=== PATIENT | female | born 1960 | race Caucasian/White ===

== ENCOUNTER 2023-06-07 11:19 | Emergency (ER) | payer OTHER, SELFPAY ==
[2023-06-07 11:27] VITALS: BP 140/90
[2023-06-07 11:56] LABS: % Basophils 1.4 % (0-2); % Eosinophils 11.2 % (0-6); % Immature Granulocytes 0.3 % (0-0.5); % Lymphocytes 27.3 % (20.5-51.1); % Neutrophils 49.8 % (42.2-75.2); Absolute Basophils 0.1 10^3/uL (0-0.2); Absolute Eosinophils 0.8 10^3/uL (0-0.7); Absolute Lymphocytes 1.9 10^3/uL (1.2-3.4); Absolute Monocytes 0.7 10^3/uL (0.1-0.6); Absolute Neutrophils 3.5 10^3/uL (1.4-6.5); Hematocrit 43.6 % (37.0-47.0); Hemoglobin 14.1 g/dL (12.0-16.0); Mean Corp Hgb Conc. 32.3 g/dL (33.0-37.0); Mean Corpuscular Hgb 30.1 pg (27.0-31.0); Mean Platelet Volume 9.7 fL (7.4-10.4); Nucleated Red Blood Cells % 0 %; Platelet Count 265 10^3/uL (130-400); Red Blood Cell Count 4.69 10^6/uL (4.20-5.40)
[2023-06-07 12:05] LABS: ALT (SGPT) 33 U/L (0-35); AST (SGOT) 50 U/L (14-36); Albumin 4.3 g/dl (3.5-5.0); Alkaline Phosphatase 65 U/L (38-126); Blood Urea Nitrogen 10 mg/dl (7-17); Calcium 9.4 mg/dl (8.4-10.2); Carbon Dioxide 32 mmol/L (22-30); Chloride 100 mmol/L (98-107); Glucose 88 mg/dl (70-99); Potassium 4.5 mmol/L (3.5-5.1); Sodium 136 mmol/L (135-145); Total Bilirubin 0.5 mg/dl (0.2-1.3); Total Protein 7.1 g/dl (6.3-8.2); eGFR > 60.00
[2023-06-07 12:17] LABS: Troponin I < 0.012 ng/ml
[2023-06-07 12:31] LABS: COVID-19 Antigen Negative (Negative)
--- NOTE | 2023-06-07 13:31 | ED.GENMED ---
History of Present Illness
General
Chief Complaint: Breathing Problem
Time Seen by Provider: 06/07/23 12:38
Travel History
Have you had any contact with someone who has COVID-19?: No
Do you have any symptoms of coronavirus? Fever > 100 degrees, chills, cough, shortness of breath, sore throat, loss of taste or smell, muscle aches, or headache?: No
History of Present Illness
History of Present Illness:
62-year-old female with history of COPD presents to the emergency department for evaluation of shortness of breath particular with exertion. She feels as though her COPD is worsening. She has been using her nebulizers and her controlled
medications as prescribed and feels that her symptoms are worsening. She states she is quite hesitant about the prospect of receiving steroid medications due to the frequency with which she has taken them. She does not have a pending pulmonology
follow-up due to lack of available appointments. Denies any fever, chills, sweats, purulent sputum, chest pain, or leg swelling
Past History
Past History
ED Past Medical History: COPD, Psychiatric (anxiety) and Other (Hep C); Negative HTN, Hypercholesterolemia, IDDM or NIDDM
ED Past Surgical History: Negative Cardiac (Pacemaker)
Social History
Tobacco: Former smoker
Alcohol: Occasional (states she drank Rum today)
Drug: None
Personal: Other
Living: with roommate (her son's father)
Employment: Disabled
Family History
Family History: Other; Negative Early CAD or CAD
Review of Systems
Review of Systems
Allergies reviewed?: Yes
All Other Systems: ROS reviewed and negative except as documented in HPI and ROS
Phy Exam
Physical Exam
Physical Exam:
GEN: Well appearing, NAD, WDWN
HEENT: Oral mucosa moist, no scleral icterus
Cardiac: Regular rate, and rhythm, no murmur
Lung: Normal respiratory effort, no conversational dyspnea. Scant expiratory wheezes heard throughout all lung ford, diminished bibasilar sounds
MSK: No gross deformity or injuries
Skin: Good color, no pallor or jaundice, no rashes
Neuro: AO x3, moves all extremities freely
Psych: Calm, cooperative
Scores
Heart Failure Risk
Heart Failure Risk Score: Not Applicable
Course
Orders/Labs/Results
Orders:
Orders
06/07/23 11:31
Electrocardiogram (*1) Routine
Reason for Study: Shortness of Breath
Chest [CR Chest - 2 Views ] Urgent
Comment:
Reason For Exam: sob and chest pain
06/07/23 11:37
COVID-19 Antigen Urgent
Source: Nasal Swab
Complete Blood Count/With Diff Urgent
Comprehensive Metabolic Panel Urgent
Troponin I Urgent
06/07/23 12:54
Ipratropium/Albuterol Sulfate [Duoneb] 3 ml INH R NOW ONE
Abnormal Lab Results
06/07/23
11:37
MCHC 32.3 L g/dL
(33.0-37.0)
RDW 15.0 H %
(11.5-14.5)
Absolute Monos (auto) 0.7 H 10^3/uL
(0.1-0.6)
Absolute Eos (auto) 0.8 H 10^3/uL
(0-0.7)
Monocytes % 10.0 H %
(1.7-9.3)
Eosinophils % 11.2 H %
(0-6)
Carbon Dioxide 32 H mmol/L
(22-30)
AST 50 H U/L
(14-36)
06/07/23 11:37
06/07/23 11:37
Vital Signs
Initial and Last Documented VS:
Initial Vital Signs
Temp Pulse Resp BP Pulse Ox
98.0 F 97 20 140/90 97
06/07/23 11:27 06/07/23 11:27 06/07/23 11:27 06/07/23 11:27 06/07/23 11:27
Last Documented Vital Signs
Temp Pulse Resp BP Pulse Ox
98.0 F 91 20 112/77 96
06/07/23 11:27 06/07/23 14:22 06/07/23 14:22 06/07/23 14:22 06/07/23 14:22
MDM/Problems Addressed
MDM/Problems Addressed:
60-year-old female presenting with shortness of breath. Symptoms are likely on the basis of her COPD. Due to the presence of mild wheezing we will treat this as an acute exacerbation. She is quite apprehensive to the prospect of receiving oral
steroids thus we will provide her with budesonide nebulizer however she is encouraged to consider using the oral steroids in place of this if she is not improving in the next 3 to 5 days. ED return parameters discussed. No indication for
antibiotics
Comment
Comment:
Initial EKG independently interpreted by me shows normal sinus rhythm at a rate of [address] changes concerning for ischemia, QTc of 409
*Critical Care Note
Total Time (30-74mins, 75-104mins- exclusive of procedures): Not Applicable
ED Attending Note
-
Portions of this chart may have been created with voice recognition software.� Occasional wrong word or��sound alike� substitutions may have occurred due to the inherent limitations of voice recognition software.
Discharge Plan
Departure
Patient Disposition: Home (Routine Discharge)
Date of Disposition: 06/07/23
Time of Disposition: 14:
Patient with high blood pressure during this ER visit?: No
Discharge Problem:
Acute exacerbation of chronic obstructive pulmonary disease
Instructions: Exacerbation of COPD (DC)
Prescriptions:
New
budesonide 0.5 mg/2 mL suspension for nebulization
0.5 mg inhalation BID Qty: 60 0RF
prednisone 20 mg tablet
40 mg PO DAILY 7 Days Qty: 14 0RF
No Action
albuterol sulfate [Ventolin HFA] 90 MCG/PUFF HFA aerosol inhaler
2 puff inhalation R Q4 PRN (Reason: sob/wheezing)
ipratropium-albuterol 3 ML solution for nebulization
3 ml inhalation R Q4 PRN (Reason: sob/wheezing)
fluticasone propionate 1 SPRAY spray,suspension
2 spray intranasal HS
loratadine 10 MG tablet
10 mg PO DAILY
aspirin 81 mg Tablet,Delayed Release (Dr/Ec)
81 mg PO DAILY
tramadol 50 mg Tablet
50 mg PO Q8H
Patient Comments:
10/26/2022: last filled 09/12/22, 100 tabs for 25 days from [facility]
pantoprazole 40 mg Tablet,Delayed Release (Dr/Ec)
40 mg PO DAILY
montelukast 10 mg Tablet
10 mg PO DAILY
metoprolol succinate 25 mg Tablet Extended Release 24 Hr
12.5 mg PO DAILY
Spiriva with HandiHaler 18 mcg capsule, w/inhalation device
18 mcg INHALATION R DAILY
Entresto 24-26 mg Tablet
0.5 tab PO BID
therapeutic multivitamin Tablet
1 tab PO DAILY
cholecalciferol (vitamin D3) [Vitamin D3] 25 mcg (1,000 unit) Tablet
25 mcg PO DAILY
azelastine 0.05 % drops
1 drp BOTH EYES PRN PRN (Reason: itching eyes)
azelastine 137 mcg (0.1 %) Aerosol,[place]
1 spray INTRANASAL BID
Trelegy Ellipta 200-62.5-25 mcg blister with device
1 inh INHALATION R DAILY
bisacodyl 5 mg Tablet
15 mg PO HS
budesonide-formoterol [Symbicort] 160-4.5 mcg/actuation Hfa Aerosol Inhaler
2 puff INHALATION R BID
thiamine HCl (vitamin B1) 100 mg Tablet
100 mg PO BID Qty: 60 0RF
folic acid 1 mg Tablet
1 mg PO DAILY Qty: 30 0RF
prednisone 50 mg tablet
50 mg PO DAILY Qty: 5 0RF
amoxicillin 500 mg capsule
500 mg PO TID 10 Days Qty: 30 0RF
prednisone 10 mg tablet
See Rx Instructions .ROUTE .COMPLEX Qty: 45 0RF
Rx Instructions:
5 tabs day 1-3, 4 tabs day 4-6, 3 tabs day 7-9, 2 tabs day 10-12, 1 tab day 13-15
potassium chloride [K-Tab] 20 mEq tablet extended release
20 meq PO DAILY Qty: 7 0RF
prednisone 20 mg tablet
40 mg PO DAILY Qty: 10 0RF
Referrals:
Benji Dejesus MD [Family Provider] -
Activity Restrictions/Additional Instructions:
Begin taking the prednisone in 3-5 days if the nebulized budesonide has not helped
If you begin the prednisone, stop taking the budesonide
Follow up with your lung doctor
Interventions
Interventions:
*Risk Screen - Suicide Last Done: 06/07/23 13:50
*General Assessment Last Done: 06/07/23 13:50
*Neglect/Abuse Screening Last Done: 06/07/23 13:50
ED- Fall Risk Assessment Last Done: 06/07/23 13:50
*ED COVID-19 Vaccine History Last Done: 06/07/23 13:50
*Nursing Disposition Last Done: 06/07/23 14:46
ED- Cardiac Assessment Last Done: 06/07/23 13:50
ED- Pulmonary Assessment Last Done: 06/07/23 13:50
[2023-06-07] MEDS: DUONEB 3 ML INH (13:39)
[2023-06-07 13:44] VITALS: BP 113/78
[2023-06-07 14:00] VITALS: BP 112/77
[2023-06-07 14:22] VITALS: BP 112/77
== END 2023-06-07 14:46 | disposition home or self-care (01) ==
LOC: EMR 11:19
PROVIDERS: Emergency Medicine; EMERGENCY PHYSICIAN Emergency Medicine; FAMILY PHYSICIAN Family Medicine
DX: J44.1 Chronic obstructive pulmonary disease with (acute) exacerbation (principal); F41.9 Anxiety disorder, unspecified; Z86.19 Personal history of other infectious and parasitic diseases; Z87.891 Personal history of nicotine dependence; Z95.0 Presence of cardiac pacemaker
CPT/HCPCS: 99283; 94640; 71046; 80053; 84484; 85025; 87811; 93005

== ENCOUNTER 2023-08-07 08:30 | Outpatient (RCR) | payer OTHER, SELFPAY | END 2023-08-07 23:59 | disposition home or self-care (01) | LOC: PURB 08:30 | PROVIDERS: ATTENDING PHYSICIAN Student in an Organized Health Care Education/Training Program; FAMILY PHYSICIAN Family Medicine | DX: J44.9 Chronic obstructive pulmonary disease, unspecified (principal) | CPT/HCPCS: 94625; G0237 ==

== ENCOUNTER 2023-09-04 09:30 | Outpatient (RCR) | payer OTHER, SELFPAY | END 2023-09-04 23:59 | disposition home or self-care (01) | LOC: PURB 09:30 | PROVIDERS: ATTENDING PHYSICIAN Student in an Organized Health Care Education/Training Program; FAMILY PHYSICIAN Family Medicine | DX: J44.9 Chronic obstructive pulmonary disease, unspecified (principal) | CPT/HCPCS: 94625 ==

== ENCOUNTER 2023-10-09 09:30 | Outpatient (RCR) | payer OTHER, SELFPAY | END 2023-10-09 23:59 | disposition home or self-care (01) | LOC: PURB 09:30 | PROVIDERS: ATTENDING PHYSICIAN Student in an Organized Health Care Education/Training Program; FAMILY PHYSICIAN Family Medicine | DX: J44.9 Chronic obstructive pulmonary disease, unspecified (principal) | CPT/HCPCS: 94625 ==

== ENCOUNTER 2023-10-28 09:30 | Outpatient (RCR) | payer OTHER, SELFPAY | END 2023-10-29 10:24 | disposition home or self-care (01) | LOC: PURB 09:30 | PROVIDERS: ATTENDING PHYSICIAN Student in an Organized Health Care Education/Training Program; FAMILY PHYSICIAN Family Medicine | DX: J44.9 Chronic obstructive pulmonary disease, unspecified (principal) | CPT/HCPCS: 94625 ==